=== PATIENT | male | born 1990 | race Caucasian/White ===

== ENCOUNTER 2022-01-22 08:12 | Outpatient (CLI) | payer OTHER, SELFPAY ==
[2022-01-22 13:53] LABS: Chloride* 103 mmol/L (96-114)
[2022-01-22 13:54] LABS: Sodium* 140 mmol/L (135-149)
[2022-01-22 13:55] LABS: Potassium* 4.7 mmol/L (3.6-5.1)
[2022-01-22 13:56] LABS: Cholesterol* 246 mg/dL (90-199)
[2022-01-22 13:57] LABS: Alanine Aminotransferase* 39 U/L (4-50); Alkaline Phosphatase* 75 U/L (40-150); Aspartate Amino Transferase* 32 U/L (12-35); Bilirubin Total* 0.7 mg/dL (0.1-1.5); Blood Urea Nitrogen* 16 mg/dL (5-24); Carbon Dioxide* 28 mmol/L (20-32); Creatinine* 1.1 mg/dL (0.5-1.5); Estimated Glomerular Filt Rate 93 ml/min; Glucose* 103 mg/dL (60-115); Total Protein* 7.4 g/dL (6.0-8.3)
[2022-01-22 13:58] LABS: Calcium* 10.1 mg/dL (8.4-10.6); HDL Cholesterol* 26 mg/dL (>=40); LDL Cholesterol Calculated 181 mg/dL (<100); Triglycerides* 193 mg/dL (40-149); Uric Acid* 9.8 mg/dL (2.2-8.4)
== END 2022-01-22 08:13 | disposition home or self-care (01) ==
PROVIDERS: PCP Family Medicine; Visit Provider Family Medicine
DX: Z00.00 Encounter for general adult medical examination without abnormal findings (principal); M10.9 Gout, unspecified; Z13.6 Encounter for screening for cardiovascular disorders
CPT/HCPCS: 80053; 80061; 84550

== ENCOUNTER 2022-02-02 09:19 | Day surgery (SDC) | payer OTHER, SELFPAY ==
[2022-02-02] VITALS (14 sets, daily range): BP systolic 108–135; BP diastolic 70–95; PULSE 92–113; RESP 16–161; TEMP 37.1–37.8; O2SAT 92–100; BMI 34.0
--- NOTE | 2022-02-02 10:09 | CRLHL7_ITS ---
For Patients: As a result of the Century Cures Act, medical imaging exams and procedure reports are released immediately into your electronic medical record. You may view this report before your referring provider. If you have questions, please contact your health care provider. Indication: ABSCESS LEFT BUTTOCK Technique: Postcontrast CT pelvis. 126 cc Isovue 370 intravenous contrast. Please note that all CT scans at this facility use dose modulation, iterative reconstruction, and/or weight-based dosing when appropriate to reduce radiation dose to as low as reasonably achievable. Comparison: None Findings: Circumscribed fluid collection within the left perineal subcutaneous fat measuring 4.9 x 2.4 cm. Surrounding inflammatory stranding noted. No apparent fistula to the rectum. Postoperative changes of inguinal hernia repair on the right. Bladder is normal. No adenopathy. No soft tissue gas. Osseous structures normal. Impression: 4.9 x 2.4 cm left perineal abscess. Please note that all CT scans at this facility use dose modulation, iterative reconstruction, and/or weight-based dosing when appropriate to reduce radiation dose to as low as reasonably achievable. Dictated by Rafal Israel MD @ 02/02/2022 11:55:37 AM (Electronically Signed)
--- OUTSIDE RECORDS SUMMARY | 2022-02-02 10:19 | XMS_ITS | Clinical Summary ---
:1990 Author Organization [facility] [place] [address] Care Team Providers Name Role Phone Clinic, [facility] Primary Care Provider [phone] Allergies Active Allergy Reactions Severity Noted Date Comments Penicillins *Unknown - Childhood Rxn 08/07/2017 Medications Medication Sig Dispensed Refills Start Date End Date Status indomethacin Take 1 Capsule 21 Capsule 0 01/11/2022 01/18/2022 (INDOCIN) 50 mg (50 mg) by capsuleIndications: mouth three Gout involving toe of times daily left foot, with meals for unspecified cause, 7 days. unspecified chronicity Active Problems No known active problems Encounters Date Type Specialty Care Team Description 01/11/2022 Ancillary Procedure 01/11/2022 Office Visit Jayme Max, Toe Pain/ problem (left MD great toe x 48 hrs) 01/11/2022 Travel from Last 3 Months Immunizations Name Administration Dates Next Due Tdap 08/07/2017 Social History Tobacco Use Types Packs/Day Years Used Date Former Smoker Smokeless Tobacco: Never Used Alcohol Use Standard Drinks/Week Comments Never 0 (1 standard drink = 0.6 oz pure alcoho l) Sex Assigned at Date Recorded Not on file Travel History Travel Start Travel End [place] 01/05/2022 01/08/2022 COVID-19 Exposure Response Date Recorded In the last 10 days, have you been in contact with No / Unsu re 01/11/2022 8:06 AM CDT someone who was confirmed or suspected to have Coronavirus/COVID-19? Obstetrics History Last Filed Vital Signs Vital Sign Reading Time Taken Comments Blood Pressure 137/92 01/11/2022 8:30 AM CDT Pulse 68 01/11/2022 8:30 AM CDT Temperature 36.7 ??C (98.1 ??F) 01/11/2022 8:30 AM CDT Respiratory Rate 16 01/11/2022 8:30 AM CDT Oxygen Saturation 99% 01/11/2022 8:30 AM CDT Inhaled Oxygen Concentration - - Weight 117 kg (258 lb) 12/11/2020 8:41 AM CDT Height 185.4 cm (6' 1) 12/11/2020 8:41 AM CDT Body Mass Index 34.04 12/11/2020 8:41 AM CDT Plan of Treatment Health Maintenance Due Date Last Done Comments Depression screening for age 12+ 2003 Hepatitis C screening for age 18-79 09/22/2009 COVID-19 vaccine series (3 - Booster for 11/29/2020 021, 09/13/2020 Pfizer series) Influenza for age 9-49 12/07/2021 BMI (ht and wt on same day) for age 18+ 12/11/2021 12/12/19 21 Tetanus booster 08/08/2027 08/07/2017 Tdap Completed 08/07/2017 Procedures Procedure Name Priority Date/Time Associated Diagnosis Comme nts XR ANKLE 3 VIEWS STAT 01/11/2022 8:55 AM Acute left ankle R esults for this LEFT CDT pain procedure are i n the results section. from Last 3 Months Results XR ANKLE 3 VIEWS LEFT (01/11/2022 8:55 AM CDT) Anatomical Region Laterality Modality ANKLES, ANKLE L Computed Radiography Specimen (Source) Anatomical Collection Method Collection Time Re ceived Time Location / / Volume Laterality 01/11/2022 8:55 AM CDT Impressions 01/11/2022 9:07 AM CDT Normal joint spaces and alignment. No ac yerington fracture. Syndesmotic anchors in place. Tiny chronic avulsion fracture of the ti p of the lateral malleolus. No soft tissue swelling. Narrative 01/11/2022 9:07 AM CDT For Patients: As a result of the Cures Act, medical imaging exams and procedure reports are released immediately into your [facility] medical record. You may view this report before your referring provider. If you have questions, please contact your health care provider. EXAM: XR ANKLE 3 VIEWS LEFT LOCATION: [facility] DATE/TIME: 01/11/2022 8:55 AM INDICATION: Acute Left Ankle Pain COMPARISON: None. Procedure Note Donovan Butler MD - 01/11/2022F ormatting of this note might be different from the original. For Patients: As a result of the ntury Cures Act, medical imaging exams and procedure reports are released immediately into your electronic medical record. You may view this report before your referring provider. If you have questions, please contact [facility] health care provider. EXAM: XR ANKLE 3 VIEWS LEFT LOCATION: [facility] DATE/TIME: 01/11/2022 8:55 AM INDICATION: Acute Left Ankle Pain COMPARISON: None. IMPRESSION: Normal joint spaces and alignment. No ac yerington fracture. Syndesmotic anchors in place. Tiny chronic avulsion fracture of the tip of the lateral malleolus. No soft tissue swelling. Jayme Max MD GENERAL IMAGING from Last 3 Months Insurance Payer Benefit Plan / Subscriber ID Effective Dates Phone Addre ss Type Group WC WORKERS COMP WC MEET [id number] Effective for [address] [address] [facility] all [address] [id number] 2018-Presen [address] [place] [address] [id number] (Home) [phone] ([place]) [place] [address] [employer] Self [phone] (Work) [place] [address] Care Teams Oracle Business Analyst Relationship Specialty Start Date End Date Clinic, [facility] PCP - General 04/18/[address] [id number]
[2022-02-02 11:03] LABS: Basophils Percent Auto 0.2 % (0.0-3.0); Eosinophils Percent Auto 0.9 % (0.0-7.0); Hematocrit 45.3 % (37.0-53.0); Hemoglobin* 15.1 gm/dL (13.5-17.5); Immature Granulocytes Abs Auto 0.07 K/uL (0.00-0.30); Lymphocytes Percent Auto 8.1 % (20-44); Mean Corpuscular HGB Conc 33 gm/dL (32-36); Mean Corpuscular Hemoglobin 28 pg (26-34); Mean Corpuscular Volume 84 fL (80-100); Monocytes Percent Auto 9.4 % (0.0-11.0); Platelet Count* 253 K/uL (140-440); RDW Coefficient of Variation % 12.4 % (11.5-15.5); Red Blood Count 5.37 m/uL (4.30-5.90); White Blood Count* 17.61 K/uL (4.50-11.00)
[2022-02-02 11:06] LABS: Slide Review Reflex No
[2022-02-02 11:12] LABS: SARS PCR* Negative SARS-CoV-2 (Negative)
[2022-02-02] MEDS: 0.9 % SODIUM CHLORIDE 1000 ml 1,000 ML IV (11:15)
[2022-02-02 11:17] LABS: Chloride* 100 mmol/L (96-114); Potassium* 4.3 mmol/L (3.6-5.1); Sodium* 137 mmol/L (135-149)
[2022-02-02 11:20] LABS: Creatinine* 1.5 mg/dL (0.5-1.5); Est. Creatinine Clearance* 81.38; Estimated Glomerular Filt Rate 64 ml/min
[2022-02-02 11:21] LABS: Blood Urea Nitrogen* 21 mg/dL (5-24); Calcium* 9.2 mg/dL (8.4-10.6); Carbon Dioxide* 25 mmol/L (20-32); Glucose* 96 mg/dL (60-115)
[2022-02-02 11:24] LABS: C Reactive Protein* 8.7 mg/dL (0.5-1.0)
[2022-02-02] MEDS: KETOROLAC 30 MG/ML inj IVP (11:30)
--- NOTE | 2022-02-02 11:33 | ED_ITS ---
HPI - General Adult General Chief complaint: Laceration/Wound Stated complaint: Abscess on left buttock Time Seen by Provider: 02/02/22 09:55 History of Present Illness HPI narrative: 31-year-old man presenting to the emergency department on recommendation of primary care after being seen for ?buttock abscess?. Apparently started to have some pain back there around a week ago which has increased especially the last few days. [facility] with attempted [facility]. 2-3 days ago started to have fever and sweats. Measured his temperature last night to 102.7. No drainage. 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 No known trauma. No prior issues. Does not have pain with defecation. Has been treating with ketorolac. Related Data Previous Rx's Medication Instructions Recorded allopurinol 300 mg tablet 300 mg PO QDAY #30 tabs 01/22/22 ketorolac 10 mg tablet 10 mg PO TID PRN pain #30 tabs 01/22/22 prednisone 20 mg tablet 20 mg PO BID #10 tabs 01/22/22 clindamycin HCl 300 mg capsule 300 mg PO TID 7 days #21 caps 01/31/22 hydrocodone 5 mg-acetaminophen 325 1 - 2 tab PO Q6H PRN pain #30 tabs 02/02/22 mg tablet Allergies Allergy/AdvReac Type Severity Reaction Status Date / Time Penicillins Allergy Severe Anaphylaxis Verified 02/02/22 11:07 [facility] Medical History (Updated 02/02/22 @ 12:44 by Rafal Hancock MD) Gout Surgical History (Updated 02/02/22 @ 13:15 by Enedina Lazo MD) S/P right inguinal hernia repair S/P surgical manipulation of ankle joint S/P tonsillectomy Social History (Updated 02/02/22 @ 13:15 by Enedina Lazo MD) Narrative: Patient denies smoking, occasionally drinks alcohol. 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 Smoking Status: Former smoker How often do you have a drink containing alcohol: never How often do you have six or more drinks on one occasion: Never AUDIT-C Alcohol total score: 0 Non-prescribed substance use: denies use Exam Narrative: Exam Narrative: Pleasant. NAD. Tall. Skin is warm and dry. Large tattoo the left chest. Is breathing easily. Lungs clear. Cardiovascular with elevated rate regular rhythm. Abdomen is soft overweight nontender. Genitourinary/buttock exam shows generalized induration and erythema over the mid left buttock extending toward the anus. There is a swelling at 9:00 o'clock. consistent with hemorrhoidal tissue or possibly abscess/fluctuance however not discretely an area of tenderness. Digital rectal exam does not reveal defect or marked increase in tenderness. Tender throughout area as mentioned. No pointing or clear area for drainage. Does not at least externally appear to extend toward scrotal tissues. Const: Vital Signs, click to edit/add: Vital Signs - 24 hr 02/02/22 09:32 02/02/22 13:00 02/02/22 14:11 Temperature 100.0 F H 99.8 F H Pulse Rate 113 H Pulse Rate [Right Pulse Oximeter] 101 H 96 Respiratory Rate 20 Blood Pressure 133/84 Blood Pressure [Le ft Upper Arm] 135/88 Pulse Oximetry 96 96 92 Oxygen Delivery Me thod Room Air Room Air Room Air Oxygen Flow Rate 02/02/22 14:15 02/02/22 14:20 02/02/22 14:25 Temperature 99.5 F Pulse Rate 105 H 99 100 Pulse Rate [Right Pulse Oximeter] Respiratory Rate 22 18 161 H Blood Pressure 133/81 129/81 129/81 Blood Pressure [Le ft Upper Arm] Pulse Oximetry 99 100 95 Oxygen Delivery Me thod OxyMask OxyMask Room Air Oxygen Flow Rate 10 10 02/02/22 14:30 02/02/22 14:35 02/02/22 14:40 Temperature 99.3 F Pulse Rate 97 98 98 Pulse Rate [Right Pulse Oximeter] Respiratory Rate 20 16 16 Blood Pressure 130/77 129/80 133/70 Blood Pressure [Le ft Upper Arm] Pulse Oximetry 96 95 94 Oxygen Delivery Me thod Room Air Room Air Room Air Oxygen Flow Rate 02/02/22 14:45 02/02/22 15:00 02/02/22 15:15 Temperature 98.7 F Pulse Rate 103 H 92 102 H Pulse Rate [Right Pulse Oximeter] Respiratory Rate 16 16 16 Blood Pressure 117/71 123/76 111/95 H Blood Pressure [Le ft Upper Arm] Pulse Oximetry 92 92 92 Oxygen Delivery Me thod Room Air Room Air Room Air Oxygen Flow Rate 02/02/22 15:30 10/28/22 16:14 Temperature 99.3 F Pulse Rate 96 100 Pulse Rate [Right Pulse Oximeter] Respiratory Rate 16 16 Blood Pressure 108/72 116/85 Blood Pressure [Le ft Upper Arm] Pulse Oximetry 95 94 Oxygen Delivery Me thod Room Air Room Air Oxygen Flow Rate Documenting provider has reviewed patient's vital signs: yes Course Course Hospital Course: Labs collected. Given IV fluids and ketorolac. On re-evaluation is notably improved in his pain with the ketorolac. Re-examination though does elicit a good deal of discomfort. Given exam I would have concern of perianal abscess however was not much more tender on digital rectal exam. As expected elevated white count of over 17,000. Blood cultures are pending. CRP elevated at 8.7 CT imaging was done and shows large fluid collection in the perianal/perineal area however read per radiology as below -- Findings: Circumscribed fluid collection within the left perineal subcutaneous fat measuring 4.9 x 2.4 cm. Surrounding inflammatory stranding noted. No apparent fistula to the rectum. Postoperative changes of inguinal hernia repair on the right. Bladder is normal. No adenopathy. No soft tissue gas. Osseous structures normal. Impression: 4.9 x 2.4 cm left perineal abscess. Last had a meal last night, coffee with a little cream at 6:45 a.m. this morning and water an hour prior to presentation the Emergency Department. Consultations Consultation #1: I did call to our surgeon Dr. Colin OB reviewing further images and I am anticipating potential drainage in OR. Vital Signs Vital signs: Initial Vital Signs Temperature 100.0 F H 02/02/22 09:32 Temperature Source Temporal Artery Scan 02/02/22 09:32 Pulse Rate 101 H 02/02/22 09:32 Blood Pressure 135/88 02/02/22 09:32 Blood Pressure Mean 103 02/02/22 09:32 Blood Pressure Position Standing 02/02/22 09:32 Pulse Oximetry 96 02/02/22 09:32 Oxygen Delivery Method 02/02/22 09:32 Vital Signs Temperature 100.0 F H 02/02/22 09:32 Pulse Rate 101 H 02/02/22 09:32 Blood Pressure 135/88 02/02/22 09:32 Pulse Oximetry 96 02/02/22 09:32 Oxygen Delivery Method 02/02/22 09:32 Temperature 99.3 F 02/02/22 16:14 Pulse Rate 100 02/02/22 16:14 Respiratory Rate 16 02/02/22 16:14 Blood Pressure 116/85 02/02/22 16:14 Pulse Oximetry 94 02/02/22 16:14 Oxygen Delivery Method 02/02/22 16:14 Oxygen Flow Rate 10 02/02/22 14:20 Medical Decision Making MDM Narrative Medical decision making narrative: Ultrasound guide drainage might be possible in the ER however I think would be much better tolerated in the OR setting. I have consulted with our surgeon. Lab Data Lab results reviewed: Yes I reviewed the patient's lab results Labs: Lab Results 02/02/22 02/02/22 02/02/22 Range/Units 10:11 10:50 10:50 WBC 17.61 H (4.50-11.00) K/uL RBC 5.37 (4.30-5.90) m/uL Hgb 15.1 (13.5-17.5) gm/dL Hct 45.3 (37.0-53.0) % MCV 84 (80-100) fL MCH 28 (26-34) pg MCHC 33 (32-36) gm/dL RDW Coeff of Rivas 12.4 (11.5-15.5) % Plt Count 253 (140-440) K/uL Neut % (Auto) 81.0 H (42.0-72.0) % Lymph % (Auto) 8.1 L (20-44) % [place] % (Auto) 9.4 (0.0-11.0) % Eos % (Auto) 0.9 (0.0-7.0) % Baso % (Auto) 0.2 (0.0-3.0) % Neut # (Auto) 14.30 H (1.7-7.0) K/uL Lymph # (Auto) 1.40 (0.90-2.90) K/uL [place] # (Auto) 1.70 H (0.00-0.90) K/UL Eos # (Auto) 0.20 (0.00-0.50) K/uL Baso # (Auto) 0.00 (0.00-0.30) K/uL Abs Immat Gran (auto) 0.07 (0.00-0.30) K/uL Sodium 137 (135-149) mmol/L Potassium 4.3 (3.6-5.1) mmol/L Chloride 100 (96-114) mmol/L Carbon Dioxide 25 (20-32) mmol/L BUN 21 (5-24) mg/dL Creatinine 1.5 (0.5-1.5) mg/dL Estimated Creat Clear 81.38 Estimated GFR 64 ml/min Glucose 96 (60-115) mg/dL Calcium 9.2 (8.4-10.6) mg/dL C-Reactive Protein 8.7 H (0.5-1.0) mg/dL SARS-CoV-2 (PCR) Negative SARS-CoV-2 (Negative) Discharge Plan Discharge Clinical Impression: Abscess, perineum Patient Disposition: Admitted As Inpatient Activity Level: Light activity Discharge Diet: Regular
--- NOTE | 2022-02-02 13:10 | P.GSCN_ITS ---
History of Present Illness Consult details Date Seen: 02/02/22 Consult date: 02/02/22 Narrative: 31-year-old male presents to emergency room with left perianal pain. Patient states that he started to experience pain about 1 week ago. He thought that he bumped into something and had a bruise. However his pain was getting increasingly more severe. He noticed swelling near his left side of the anus 4 days ago. He was seen at urgent care and they attempted an I&D, however no purulent drainage came out. Patient was placed on clindamycin. For the past 2 days he has been having fevers of greater than 102. Patient then presented to clinic today and was referred to the emergency room. In the emergency room he was found to have an elevated WBC of 17, which was slightly down from 21 earlier in clinic. He was found to be tachycardic and febrile. A pelvic CT was obtained that showed a left perineal abscess measuring 4.9 x 2.4 cm with surrounding inflammatory changes. Review of Systems Narrative: General: no fevers HENT: no problems swallowing CV: no shortness of breath Resp: no cough GI: No nausea, vomiting, abdominal pain : no dysuria, no increased urinary frequency, no hematuria Skin: See above Musculoskeletal: no back pain Neuro: no muscle weakness Psyche: no depression, no anxiety PFSH PFSH Medical History (Updated 02/02/22 @ 12:44 by Rafal Hancock MD) Gout Surgical History (Updated 02/02/22 @ 13:15 by Enedina Lazo MD) S/P right inguinal hernia repair S/P surgical manipulation of ankle joint S/P tonsillectomy Social History (Updated 02/02/22 @ 13:15 by Enedina Lazo MD) Narrative: Patient denies smoking, occasionally drinks alcohol. 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 Smoking Status: Former smoker Meds Home Medications and Allergies Allergies Allergy/AdvReac Type Severity Reaction Status Date / Time Penicillins Allergy Severe Anaphylaxis Verified 02/02/22 11:07 Exam Narrative: Exam Narrative: General appearance: Alert, cooperative, and in no distress Pulmonary: Chest symmetric, lungs clear bilaterally Cardiovascular Heart: Regular rate and rhythm, S1, S2, no murmurs/rubs/gallops anorectal: Bilateral buttocks skin was examined and revealed erythema of the left perianal buttocks with induration but no clear fluctuant area. Digital rectal exam was deferred. Psychiatric: Alert, cooperative, normal affect. Const: Vital Signs, click to edit/add: Vital Signs - 24 hr 02/02/22 09:32 02/02/22 13:00 Temperature 100.0 F H Pulse Rate [Right Pulse Oximeter] 101 H 96 Blood Pressure [Le ft Upper Arm] 135/88 Pulse Oximetry 96 96 Oxygen Delivery Me thod Room Air Room Air Results Labs Labs: Abnormal lab results 02/02/22 02/02/22 Range/Units 10:50 10:50 WBC 17.61 H (4.50-11.00) K/uL Neut % (Auto) 81.0 H (42.0-72.0) % Lymph % (Auto) 8.1 L (20-44) % Neut # (Auto) 14.30 H (1.7-7.0) K/uL [place] # (Auto) 1.70 H (0.00-0.90) K/UL C-Reactive Protein 8.7 H (0.5-1.0) mg/dL Diabetes panel 02/02/22 Range/Units 10:50 Sodium 137 (135-149) mmol/L Potassium 4.3 (3.6-5.1) mmol/L Chloride 100 (96-114) mmol/L Carbon Dioxide 25 (20-32) mmol/L BUN 21 (5-24) mg/dL Creatinine 1.5 (0.5-1.5) mg/dL Glucose 96 (60-115) mg/dL Calcium 9.2 (8.4-10.6) mg/dL Calcium panel 02/02/22 Range/Units 10:50 Calcium 9.2 (8.4-10.6) mg/dL Pituitary panel 02/02/22 Range/Units 10:50 Sodium 137 (135-149) mmol/L Potassium 4.3 (3.6-5.1) mmol/L Chloride 100 (96-114) mmol/L Carbon Dioxide 25 (20-32) mmol/L BUN 21 (5-24) mg/dL Creatinine 1.5 (0.5-1.5) mg/dL Glucose 96 (60-115) mg/dL Calcium 9.2 (8.4-10.6) mg/dL Adrenal panel 02/02/22 Range/Units 10:50 Sodium 137 (135-149) mmol/L Potassium 4.3 (3.6-5.1) mmol/L Chloride 100 (96-114) mmol/L Carbon Dioxide 25 (20-32) mmol/L BUN 21 (5-24) mg/dL Creatinine 1.5 (0.5-1.5) mg/dL Glucose 96 (60-115) mg/dL Calcium 9.2 (8.4-10.6) mg/dL All other labs normal. Imaging CT scan - pelvis: report reviewed and image reviewed Assessment and Plan Assessment and plan (1) Abscess and cellulitis of gluteal region: Status: Acute Plan 31-year-old male presents with left perianal abscess. I discussed with the patient his CT findings. Patient has elevated WBC and is mildly tachycardic. He is febrile as well. Patient already had an attempt at I&D in Urgent Care which was not successful. I recommended to proceed with incision and drainage in the operating room. The procedure was discussed in detail. The risks associated procedure including infection, bleeding, and temporary low risk of incontinence were also discussed with the patient, and he agreed to proceed. Patient has been on clindamycin and will continue that postoperatively.
[2022-02-02] MEDS: BUPIVACAINE 0.5% 30 ML 10 ML INJECTION (13:44)
--- NOTE | 2022-02-02 13:54 | W.ANESCHARGE ---
Anesthesia Charges Start Date/Time Anesthesia Start Date: 02/02/22 Anesthesia Start Time: 13:21 Stop Date/Time Anesthesia Stop Date: 02/02/22 Anesthesia Stop Time: 14:15 Summary Emergency: No
--- NOTE | 2022-02-02 14:00 | PM.GSPRC ---
Operative Note Date of procedure: 02/02/22 Type of Procedure: 1. Incision and drainage of left perianal abscess. Procedure Description: After discussing the risks and benefits of the procedure, the patient signed informed consent.? The operative site was marked and the patient was brought to the operating room. Patient was intubated by anesthesia and placed prone on the operating room table. All pressure points were padded.?? The operative site was then prepped and draped in the usual sterile fashion.? A time-out was then performed. The left perianal buttock skin was examined and a 16 gauge needle was used in the center of induration to find the area of incision placement. Purulent fluid was aspirated and was sent to pathology. A vertical skin incision was then made with a scalpel. Subcutaneous fat was dissected with cautery. Moderate to large amount of purulent drainage came out from this incision. The abscess cavity was probed and appeared to extend superior medially towards the anus. Hemostasis was achieved with cautery and Vicryl ties. The abscess cavity was irrigated with normal saline. Anoscopy was done and did not reveal any purulence drainage in the anal canal. There was enlarged external hemorrhoidal tissue present. Local anesthetic was injected in soft tissues around the abscess. The abscess cavity was then packed with 1 in Nu Gauze and covered with ABD. ? ? The patient was then woken and transported to the recovery area in stable condition. ? The patient tolerated the procedure well. Findings: Moderate to large amount of purulent drainage came out from the left perianal abscess. Anesthesia: GETA Surgeon: Enedina Lazo MD Estimated blood loss (mL): 5 Condition: stable Disposition: PACU
[2022-02-02] MEDS: LACTATED RINGERS 1000 ML 1,000 ML 75 ML IV (14:12)
--- NOTE | 2022-02-02 15:16 | SUR.PHASEII ---
Dr. Lazo in room to assess patient's wound drainage. ABD changed per Dr. Lazo. No additional concerns.
== END 2022-02-02 16:41 | disposition home or self-care (01) ==
LOC: ED 13:00 → SS 13:04
PROVIDERS: Emergency Provider Family Medicine; PCP Family Medicine; Visit Provider Surgery
PROC: (CPT 46040; principal; 2022-02-02 13:00)
DX: K61.0 Anal abscess (principal); R00.0 Tachycardia, unspecified
CPT/HCPCS: 46050; 00902; 36415; 72193; 80048; 85025; 86140; 87040; 87186; 87205; 87635; 99284; 99285; J0330; J1885; J2250; J2704; J2710; J3010; J3490; J7030; J7120; Q9967; S0077

== ENCOUNTER 2022-04-20 14:40 | Outpatient (CLI) | payer OTHER, SELFPAY ==
[2022-04-20 21:59] LABS: Uric Acid* 10.2 mg/dL (2.2-8.4)
== END 2022-04-20 14:41 | disposition home or self-care (01) ==
LOC: LKVREF 14:41
PROVIDERS: PCP Family Medicine; Visit Provider Family Medicine
DX: M10.9 Gout, unspecified (principal)
CPT/HCPCS: 84550

== ENCOUNTER 2022-07-11 10:56 | Outpatient (CLI) | payer OTHER, SELFPAY | END 2022-07-11 10:57 | disposition home or self-care (01) | LOC: NFLDREF 07-12 06:03 | PROVIDERS: PCP Family Medicine; Referring Provider Family Medicine; Visit Provider Family Medicine | DX: E78.5 Hyperlipidemia, unspecified (principal) | CPT/HCPCS: 80061; 80076 ==

== ENCOUNTER 2022-10-08 14:10 | Outpatient (CLI) | payer OTHER, SELFPAY | END 2022-10-08 14:11 | disposition home or self-care (01) | LOC: LKVREF 14:11 | PROVIDERS: PCP Family Medicine; Visit Provider Physician Assistant | DX: L02.215 Cutaneous abscess of perineum (principal) | CPT/HCPCS: 87070 ==

== ENCOUNTER 2022-10-15 11:42 | Outpatient (CLI) | payer OTHER, SELFPAY | END 2022-10-15 11:43 | disposition home or self-care (01) | LOC: NFLDREF 10-16 12:00 | PROVIDERS: PCP Family Medicine; Referring Provider Family Medicine; Visit Provider Family Medicine | DX: E78.5 Hyperlipidemia, unspecified (principal); L73.2 Hidradenitis suppurativa; L02.31 Cutaneous abscess of buttock; L03.317 Cellulitis of buttock; B99.9 Unspecified infectious disease | CPT/HCPCS: 80061; 80076 ==

== ENCOUNTER 2024-03-17 12:46 | Outpatient (CLI) | payer OTHER, SELFPAY ==
--- OUTSIDE RECORDS SUMMARY | 2024-03-17 12:49 | XMS_ITS | Clinical Summary ---
Author Organization [facility] Address [place], [place] [address] Care Team Providers Care Reel Assembler Name Role Phone [facility], [facility] Primary Care Provide r Allergies Active Allergy Reactions Criticality Noted Date Comments Penicillins *Unknown - Childhood Rxn 08/07/2017 Medications No known medications Active Problems No known active problems Immunizations Name Administration Dates Next Due Tdap 08/07/2017 Social History Tobacco Use Types Packs/Day Years Used Date Smoking Tobacco: Former Smokeless Tobacco: Never Alcohol Use Standard Drinks/Week Comments Never 0 (1 standard drink = 0.6 oz pur e alcohol) Sex and Gender Information Value Date Recorded Sex Assigned at Not on file Legal Sex Male 5:20 PM CDT Gender Identity Not on file Sexual Orientation Not on file Obstetrics History Last Filed Vital Signs Vital Sign Reading Time Taken Comments Blood Pressure 137/92 01/11/2022 8:30 AM CDT Pulse 68 01/11/2022 8:30 AM CDT Temperature 36.7 C (98.1 F) 01/11/2022 8:30 AM CDT Respiratory Rate 16 [...] Comments Depression screening for age 12+ 2003 HIV for age 15-65 09/22/2006 Hepatitis C screening for ag e 18-79 09/22/2009 BMI (ht and wt on same day) for age 18+ 12/11/2021 12/11/2020 COVID-19 vaccine series ( season) 2023 10/04/2020, 09/13/2020 Influenza for age 9-49 12/08/2023 Tetanus booster 08/08/2027 08/07/2017 Tdap Completed 08/07/2017 Pneumococcal series for age 6-64 Aged Out No longer eligible b ased on patient's age to complete this topic Insurance [id number] [place] [address] [id number] [place] [address] JOVANY DSOUZA [facility] Care Teams Reel Assembler Relationship Specialty Start Date End Date Clinic, [facility] Dena [address] [id number] PCP - General 04/18/19
== END 2024-03-17 12:47 | disposition home or self-care (01) ==
PROVIDERS: PCP Family Medicine; Visit Provider Family Medicine
DX: R74.8 Abnormal levels of other serum enzymes (principal); E78.5 Hyperlipidemia, unspecified; M10.9 Gout, unspecified; Z76.89 Persons encountering health services in other specified circumstances
CPT/HCPCS: 80053; 80061; 84550